=== PATIENT | male | born 1975 | race Caucasian/White ===

== ENCOUNTER 2018-07-03 10:50 | Emergency (ER) | payer MEDICAID, OTHER ==
[2018-07-03] MEDS ORDERED: NS 1,000 ML IV ONE (10:54)
[2018-07-03 10:58] VITALS: BP 149/95
[2018-07-03 11:39] LABS: PLATELET COUNT 251 10^3/uL (150-400)
--- NOTE | 2018-07-03 11:43 | EDPHY ---
HPI/HX/ROS/PE/MDM Narrative: CHIEF COMPLAINT: Possible narcotic overdose HPI: This patient is a 43 year old male. He arrives today via EMS following a possible narcotic overdose. His significant other found him unresponsive in the kitchen this morning and called EMS. On EMS arrival, the patient was unresponsive with SpO2 30%. EMS administered 2mg IM Narcan per protocol and patient woke, confused initially. BGL was 155. Patient is now alert and oriented. He admits to taking one 30mg IR oxycodone for back pain. He states does not have a prescription and does not generally take narcotic medications. He denies any recent trauma or illness. REVIEW OF SYSTEMS: A comprehensive 10 system review of systems is otherwise negative aside from elements mentioned in the history of present illness and medical decision making. PMH: Cholelithiasis. SOCIAL HISTORY: Lives in [place] with his significant other. PHYSICAL EXAM: General:Patient is alert, in no acute distress. ENT:Eyes are normal to inspection. ENT inspection normal. Neck: Normal inspection. Full range of motion. Respiratory:No respiratory distress. Breath sounds normal bilaterally. Cardiovascular: Regular rate and rhythm. Strong peripheral pulses. Normal cap refill. Abdomen:The abdomen is nontender to palpation. There are no peritoneal signs. There are normal bowel sounds. Back: Normal to inspection. No tenderness to palpation. Skin: Normal color. No rash. Warm and dry. Extremities: Normal appearance. Full range of motion. Neuro: Oriented x3. Normal motor function. Normal sensory function. ED Course: 43 y/o male presents following a possible narcotic overdose. Plan for EKG, labs including CBC, chemistries. Plan to administer 1L IV NS. EKG was ordered and interpreted by myself. Please see [employer] system for official reading. Laboratory studies unremarkable. 13:00 Reassessed patient. He is alert and conversational, states he feels nauseous and tired. He states he is 100% certain he took 30mg oxycodone, not OxyContin. He agrees to remain here in the emergency department for observation. Plan to administer 4mg IV Zofran for nausea relief. 13:45 Patient's significant other is now at bedside. He feels well and would like to be discharged home. Vitals are within normal limits, he is alert and oriented. Plan to discharge home in good condition. Prescription for Narcan provided. Follow up and return precautions discussed. He is comfortable with this plan. - Data Points Laboratory Results: Laboratory Results 07/03/18 11:20 07/03/18 11:20 07/03/18 07/03/18 11:20 11:20 WBC 9.02 10^3/uL 10^3/uL (3.80-9.50) RBC 4.57 10^6/uL 10^6/uL (4.40-6.38) Hgb 14.7 g/dL g/dL (13.7-17.5) Hct 43.2 % % (40.0-51.0) MCV 94.5 fL fL (81.5-99.8) MCH 32.2 pg pg (27.9-34.1) MCHC 34.0 g/dL g/dL (32.4-36.7) RDW 12.6 % % (11.5-15.2) Plt Count 251 10^3/uL 10^3/uL (150-400) MPV 9.6 fL fL (8.7-11.7) Neut % (Auto) 66.3 % % (39.3-74.2) Lymph % (Auto) 23.3 % % (15.0-45.0) [place] % (Auto) 7.3 % % (4.5-13.0) Eos % (Auto) 1.8 % % (0.6-7.6) Baso % (Auto) 0.7 % % (0.3-1.7) Nucleat RBC Rel Count 0.0 % % (0.0-0.2) Absolute Neuts (auto) 5.99 10^3/uL 10^3/uL (1.70-6.50) Absolute Lymphs (auto) 2.10 10^3/uL 10^3/uL (1.00-3.00) Absolute Monos (auto) 0.66 10^3/uL 10^3/uL (0.30-0.80) Absolute Eos (auto) 0.16 10^3/uL 10^3/uL (0.03-0.40) Absolute Basos (auto) 0.06 10^3/uL 10^3/uL (0.02-0.10) Absolute Nucleated RBC 0.00 10^3/uL 10^3/uL (0-0.01) Immature Gran % 0.6 % % (0.0-1.1) Immature Gran # 0.05 10^3/uL 10^3/uL (0.00-0.10) Sodium 139 mEq/L mEq/L (135-145) Potassium 4.0 mEq/L mEq/L (3.5-5.2) Chloride 101 mEq/L mEq/L (97-110) Carbon Dioxide 27 mEq/l mEq/l (22-31) Anion Gap 11 mEq/L mEq/L (6-14) BUN 15 mg/dL mg/dL (7-23) Creatinine 0.8 mg/dL mg/dL (0.7-1.3) Estimated GFR > 60 Glucose 140 mg/dL H mg/dL (70-100) Calcium 8.6 mg/dL mg/dL (8.5-10.4) Medications Given: Discontinued Medications Sodium Chloride (Ns) 1,000 mls @ 0 mls/hr IV EDNOW ONE; Wide Open PRN Reason: Protocol Stop: 07/03/18 10:55 Last Admin: 07/03/18 11:03 Dose: 1,000 mls Ondansetron HCl (Zofran) 4 mg IVP EDNOW ONE Stop: 07/03/18 13:07 Last Admin: 07/03/18 13:12 Dose: 4 mg General Time Seen by Provider: 07/03/18 10:52 Initial Vital Signs: Initial Vital Signs Temperature (C) 36.4 C 07/03/18 10:56 Heart Rate 119 H 07/03/18 10:56 Respiratory Rate 20 07/03/18 10:56 Blood Pressure 149/95 H 07/03/18 10:56 O2 Sat (%) 93 07/03/18 10:56 O2 Delivery Mode Room Air Allergies/Adverse Reactions: No Known Allergies Allergy (Verified 08/22/14 10:54) Home Medications: Medication Instructions Recorded Diazepam [Valium 2 MG (*)] 2 mg PO BID PRN 08/22/14 Omeprazole [Prilosec] 40 mg PO DAILY 08/22/14 Zolpidem Tartrate [Ambien 10 mg] 10 mg PO HS 08/22/14 Naloxone HCl [Narcan] 0.4 mg IM ONCE PRN #2 inj 07/03/18 Departure - Departure Disposition: Home, Routine, Self-Care Clinical Impression: Narcotic overdose Qualifiers: Encounter type: initial encounter Injury intent: accidental or unintentional Qualified Code(s): T40.601A - Poisoning by unspecified narcotics, accidental ( unintentional), initial encounter Condition: Good Instructions: Pentazocine/Naloxone (By mouth), Prescription Narcotic Overdose ( ED) Additional Instructions: Follow up with your primary care provider. Please take prescription pain medications only as prescribed. Please do not take narcotic medications that are not prescribed to you. Use Narcan as prescribed in case of opioid overdose. Return to the emergency department for fever, vomiting, confusion, severe headache, chest pain, difficulty breathing, or other worsening of condition. Referrals: Ana Resendiz MD [Medical Doctor] - As per Instructions Prescriptions: Naloxone HCl [Narcan] 0.4 mg IM ONCE PRN #2 inj PRN Reason: opiate overdose Report Scribed for: Hal Desai Report Scribed by: Chiquita Burroughs Date of Report: 07/03/18 Time of Report: 11:54 Physician Review and Approval Statement: Portions of this note were transcribed by an ED scribe. I personally performed the history, physical exam, and medical decision making; and confirm the accuracy of the information in the transcribed note.
[2018-07-03] MEDS ORDERED: ONDANSETRON 4 MG/2 ML VIAL IVP ONE (13:06)
--- NOTE | 2018-07-03 15:12 | CPEKG ---
Test Reason : OPEN Blood Pressure : / mmHG Vent. Rate : 092 BPM Atrial Rate : 092 BPM P-R Int : 149 ms QRS Dur : 104 ms QT Int : 361 ms P-R-T Axes : 084 095 049 degrees QTc Int : 447 ms Sinus rhythm Confirmed by Hal Desai ([id number] on 07/03/2018 3:12:13 PM Referred By: Hal Desai Confirmed By:Hal Desai
== END 2018-07-03 14:27 | disposition home or self-care (01) ==
LOC: EDUNIT#
DX: T40.601A Poisoning by unspecified narcotics, accidental (unintentional), initial encounter (principal); E86.9 Volume depletion, unspecified
CPT/HCPCS: 96374; J2405